=== PATIENT | male | born 1975 | race African-American/Black ===

== ENCOUNTER 2017-06-06 07:14 | Emergency (ER) | payer BC ==
--- NOTE | 2017-06-06 07:58 | EKG ---
Test Date: 2017-06-06 Test Time: 07:34:59 [employer] Supervisor: [place] MEASUREMENT RESULTS: Intervals: Rate: 55 [place]: 144 QRSD: 104 QT: 408 QTc: 390 [place]: P: 58 [place]: 144 QRS: 32 T: -52 INTERPRETIVE STATEMENTS: Sinus bradycardia ST & T wave abnormality, consider inferior ischemia Abnormal ECG Compared to ECG 08/08/2007 19:47:14 ST (T wave) deviation now present Possible ischemia now present Electronically Signed On 06-06-17 07:58:03 CDT by Odilon Fernandez
--- NOTE | 2017-06-06 08:12 | RAD REPORT ---
EXAM DESCRIPTION: CT - Head Brain Wo Cont - 06/06/2017 7:54 am CLINICAL HISTORY: Dizziness, syncope. COMPARISON: None. TECHNIQUE: All CT scans are performed using dose optimization technique as appropriate and may inclu de automated exposure control or mA/KV adjustment according to patient size. FINDINGS: No intracranial hemorrhage, hydrocephalus or extra-axial fluid collection.No areas of brai n edema or evidence of midline shift. The paranasal sinuses and mastoids are clear. The calvarium is intact. IMPRESSION: No acute intracranial abnormality.
[2017-06-06 08:28] LABS: Protime INR 1.1
[2017-06-06 08:36] LABS: Absolute Lymphocytes (CBC) 1.3 K/uL (0.7-4.9); Absolute Monocytes 0.4 K/uL (0.1-1.3); Absolute Neutrophil 4.8 K/uL (1.8-8.0); Basophils % 1.5 % (0-1.3); Eosinophils % 3.3 % (0-4.4); Hematocrit 41.6 % (39.6-49.0); Lymphocytes % 18.4 % (15.3-44.8); MCH 29.9 pg (27.0-35.0); Monocytes % 6.4 % (3.3-12.3); Potassium 3.4 mEq/L (3.6-5.0); RBC Red Blood Cell Count 4.52 M/uL (4.33-5.43)
[2017-06-06 08:42] LABS: Albumin 4.3 g/dL (3.2-5.5); Bilirubin Direct 0.1 mg/dL (0-0.2); Bilirubin Total 0.7 mg/dL (0.3-1.2); Magnesium 1.8 mg/dL (1.8-2.5); Protein, Total 7.4 g/dL (6.0-8.3)
--- NOTE | 2017-06-06 09:03 | RAD REPORT ---
EXAM DESCRIPTION: RAD - Chest Single View - 06/06/2017 8:18 am CLINICAL HISTORY: Chest pain. COMPARISON: None. FINDINGS: Portable technique limits examination quality. The lungs are grossly clear. The heart is normal in size. No displaced fractures. IMPRESSION: No acute intrathoracic process suspected.
[2017-06-06 09:37] LABS: A1c Component 0.5 mg/dL; Hemoglobin A1c 5.3 % (4-6.0)
--- NOTE | 2017-06-06 11:24 | ER ---
Nurse's Notes [facility] Name: Jhon Ash Age: 42 yrs Sex: Male : 1975 Arrival Date: 06/06/2017 Time: 07:16 Bed 4 Private MD: Diagnosis: Dizziness and giddiness;Hypoglycemia, unspecified Presentation: 06/06 07:22 Presenting complaint: Patient states: Pt reports he was in a meeting approx 2 hours ago ss when he became dizzy and sweaty lasting about 5-10 minutes. Denies chest plain/ shortness of breath. PT has no complaints at this time other than a mild headache. Transition of care: patient was not received from another setting of care. Onset of symptoms was June 06, 2017. Care prior to arrival: None. 07:22 Method Of Arrival: Ambulatory ss 07:22 Acuity: MELVI 3 ss Historical: - Allergies: 07:25 No Known Allergies; ss - Home Meds: 07:25 Abilify 10 mg oral tab 1 tab once daily [Active]; ss - PMHx: 07:25 Bipolar disorder; Depression; ss - PSHx: 07:25 None; ss - Immunization history:: Adult Immunizations up to date. - Social history:: Smoking status: Patient/guardian denies using tobacco. Screenin:35 Abuse screen: Denies threats or abuse. Denies injuries from another. Nutritional hb screening: No deficits noted. Tuberculosis screening: No symptoms or risk factors identified. Fall Risk Total Padilla Fall Scale indicates Low Risk Score (25-44 pts). Fall prevention measures have been instituted. Side Rails Up X 2 Frequent Obs/Assesments occuring As available Patient and Family Educated on Fall Prevention Program and strategies. Assessment: 07:34 Reassessment: BGL 58, pt denies dizziness/pain. Juice x 2 provided and breakfast try hb ordered. CLINICAL NURSING PROFESSOR Bob notified. 07:35 General: Appears in no apparent distress. Behavior is calm, cooperative. Pain: Denies hb pain. Neuro: Level of Consciousness is awake, alert, obeys commands, Oriented to person, place, time, situation. Cardiovascular: Capillary refill < 3 seconds Patient's skin is warm and dry. Respiratory: Airway is patent Trachea midline Respiratory effort is even, unlabored, Respiratory pattern is regular, symmetrical, Breath sounds are clear bilaterally. GI: No signs and/or symptoms were reported involving the gastrointestinal system. : No signs and/or symptoms were reported regarding the genitourinary system. EENT: No signs and/or symptoms were reported regarding the EENT system. Derm: No signs and/or symptoms reported regarding the dermatologic system. Skin is pink, warm \T\ dry. Musculoskeletal: No signs and/or symptoms reported regarding the musculoskeletal system. 08:30 Reassessment: Patient appears in no apparent distress at this time. Patient and/or hb family updated on plan of care and expected duration. Pain level reassessed. Patient is alert, oriented x 3, equal unlabored respirations, skin warm/dry/pink. Patient denies pain at this time. Patient states feeling better. Patient states symptoms have improved. 09:30 Reassessment: Patient appears in no apparent distress at this time. No changes from hb previously documented assessment. Patient and/or family updated on plan of care and expected duration. Pain level reassessed. Patient is alert, oriented x 3, equal unlabored respirations, skin warm/dry/pink. 10:20 Reassessment: Patient appears in no apparent distress at this time. No changes from hb previously documented assessment. Patient and/or family updated on plan of care and expected duration. Pain level reassessed. Patient is alert, oriented x 3, equal unlabored respirations, skin warm/dry/pink. 11:14 Reassessment: Patient appears in no apparent distress at this time. No changes from hb previously documented assessment. Patient and/or family updated on plan of care and expected duration. Pain level reassessed. Patient is alert, oriented x 3, equal unlabored respirations, skin warm/dry/pink. Vital Signs: 07:25 BP 121 / 72; Pulse 65; Resp 16; Temp 98.4(O); Pulse Ox 100% on R/A; Height 6 ft. 0 in. ss (182.88 cm); Pain 0/10; 08:30 BP 120 / 70; Pulse 64; Resp 15; Pulse Ox 100% on R/A; Pain 0/10; hb 09:15 BP 111 / 72; Pulse 65; Resp 16; Pulse Ox 100% on R/A; Pain 0/10; hb 10:20 BP 122 / 89; Pulse 67; Resp 16; Pulse Ox 100% on R/A; hb 11:00 BP 120 / 82; Pulse 66; Resp 15; Pulse Ox 100% on R/A; hb ED Course: 07:16 Patient arrived in ED. as 07:24 Triage completed. ss 07:25 Arm band placed on right wrist. ss 07:28 Bob Torres NP is PHCP. pm1 07:28 Ryan Lewis MD is Attending Physician. pm1 07:34 Dhara Moreno, RN is Primary Nurse. hb 07:35 Patient has correct armband on for positive identification. Placed in gown. Bed in low hb position. Call light in reach. Side rails up X 1. 07:45 EKG done, by metallographic technician. reviewed by Ryan Lewis MD. tc 07:46 Inserted saline lock: 18 gauge in right antecubital area, using aseptic technique. hb Blood collected. 07:54 CT Head Brain wo Cont In Process Unspecified. EDMS 08:17 X-ray completed. Portable x-ray completed in exam room. Patient tolerated procedure ml well. 11:47 No provider procedures requiring assistance completed. IV discontinued, intact, hb bleeding controlled, No redness/swelling at site. Pressure dressing applied. Administered Medications: No medications were administered Point of Care Testing: Blood Glucose: 11:13 Blood Glucose: 78 mg/dL; hb Ranges: Outcome: 11:23 Discharge ordered by . pm1 11:47 Discharged to home ambulatory. hb 11:47 Condition: stable 11:47 Discharge instructions given to patient, Instructed on discharge instructions, follow up and referral plans. Demonstrated understanding of instructions, follow-up care. 11:48 Patient left the ED. hb 11:53 Patient left the ED. ph Signatures: Dispatcher [employer] EDMT Jennifer Cooper Melissa ml Smirch, Shelby, RN RN Wanda Alex, osteopathic physician EKG [facility] Pina Carpenter RN RN Bob Torres NP CLINICAL NURSING PROFESSOR pm1 Dhara Moreno, DON RN hb
--- NOTE | 2017-06-06 11:24 | EDPHYS ---
Physician Documentation [facility] Name: Jhon Ash Age: 42 yrs Sex: Male : 1975 Arrival Date: 06/06/2017 Time: 07:16 Bed 4 Private MD: ED Physician Ryan Lewis HPI: 06/06 08:00 This 42 yrs old Black Male presents to ER via Ambulatory with complaints of Dizziness. pm1 08:00 The patient presents with lightheadedness. Onset: The symptoms/episode began/occurred pm1 just prior to arrival. Context: occurred at work, occurred while the patient was standing, just prior to the episode the patient experienced no apparent symptoms. Modifying factors: The symptoms are alleviated by sitting down, the symptoms are aggravated by nothing. Associated signs and symptoms: Pertinent negatives: abdominal pain, chest pain, focal weakness, nausea, numbness, palpitations, shortness of breath, tingling, vomiting. Severity of symptoms: in the emergency department the symptoms have improved Pain is currently a 0 / 10. Patient's baseline: Neuro: alert and fully oriented, Motor: no deficits, Ambulation: walks without assistance, Speech: normal, The patient has a previous history of bipolar disorder - takes abilify. The patient has not experienced similar symptoms in the past. Historical: - Allergies: 07:25 No Known Allergies; ss - Home Meds: 07:25 Abilify 10 mg oral tab 1 tab once daily [Active]; ss - PMHx: 07:25 Bipolar disorder; Depression; ss - PSHx: 07:25 None; ss - Immunization history:: Adult Immunizations up to date. - Social history:: Smoking status: Patient/guardian denies using tobacco. ROS: 08:00 Constitutional: Negative for fever, chills, and weight loss, Eyes: Negative for injury, pm1 pain, redness, and discharge, ENT: Negative for injury, pain, and discharge, Neck: Negative for injury, pain, and swelling, Cardiovascular: Negative for chest pain, palpitations, and edema, Respiratory: Negative for shortness of breath, cough, wheezing, and pleuritic chest pain, Abdomen/GI: Negative for abdominal pain, nausea, vomiting, diarrhea, and constipation, Back: Negative for injury and pain, : Negative for injury, bleeding, discharge, and swelling, MS/Extremity: Negative for injury and deformity, Skin: Negative for injury, rash, and discoloration. 08:00 Neuro: Positive for dizziness, Negative for headache, numbness, seizure activity, syncope, tingling. Exam: 08:00 Constitutional: This is a well developed, well nourished patient who is awake, alert, pm1 and in no acute distress. Head/Face: Normocephalic, atraumatic. Eyes: Pupils equal round and reactive to light, extra-ocular motions intact. Lids and lashes normal. Conjunctiva and sclera are non-icteric and not injected. Cornea within normal limits. Periorbital areas with no swelling, redness, or edema. ENT: Nares patent. No nasal discharge, no septal abnormalities noted. Tympanic membranes are normal and external auditory canals are clear. Oropharynx with no redness, swelling, or masses, exudates, or evidence of obstruction, uvula midline. Mucous membranes moist. Neck: Trachea midline, no thyromegaly or masses palpated, and no cervical lymphadenopathy. Supple, full range of motion without nuchal rigidity, or vertebral point tenderness. No Meningismus. Chest/axilla: Normal chest wall appearance and motion. Nontender with no deformity. No lesions are appreciated. Cardiovascular: Regular rate and rhythm with a normal S1 and S2. No gallops, murmurs, or rubs. Normal PMI, no JVD. No pulse deficits. Respiratory: Lungs have equal breath sounds bilaterally, clear to auscultation and percussion. No rales, rhonchi or wheezes noted. No increased work of breathing, no retractions or nasal flaring. Abdomen/GI: Soft, non-tender, with normal bowel sounds. No distension or tympany. No guarding or rebound. No evidence of tenderness throughout. Back: No spinal tenderness. No costovertebral tenderness. Full range of motion. Skin: Warm, dry with normal turgor. Normal color with no rashes, no lesions, and no evidence of cellulitis. MS/ Extremity: Pulses equal, no cyanosis. Neurovascular intact. Full, normal range of motion. 08:00 Neuro: Orientation: is normal, Mentation: is normal, Cranial nerves: CN II- XII are normal as tested, Cerebellar function: normal finger to nose testing, Motor: moves all fours, strength is normal, strength is 5/5 in all extremities, Sensation: is normal, no obvious gross deficits, Gait: is steady, at a normal pace, without difficulty. Vital Signs: 07:25 BP 121 / 72; Pulse 65; Resp 16; Temp 98.4(O); Pulse Ox 100% on R/A; Height 6 ft. 0 in. ss (182.88 cm); Pain 0/10; 08:30 BP 120 / 70; Pulse 64; Resp 15; Pulse Ox 100% on R/A; Pain 0/10; hb 09:15 BP 111 / 72; Pulse 65; Resp 16; Pulse Ox 100% on R/A; Pain 0/10; hb 10:20 BP 122 / 89; Pulse 67; Resp 16; Pulse Ox 100% on R/A; hb 11:00 BP 120 / 82; Pulse 66; Resp 15; Pulse Ox 100% on R/A; hb MDM: 07:29 Patient medically screened. pm1 11:08 Data reviewed: vital signs. Data interpreted: Pulse oximetry: on room air is 100 %. pm1 Interpretation: normal. 11:22 Counseling: I had a detailed discussion with the patient and/or guardian regarding: the pm1 historical points, exam findings, and any diagnostic results supporting the discharge/admit diagnosis, lab results, radiology results, the need for outpatient follow up, to return to the emergency department if symptoms worsen or persist or if there are any questions or concerns that arise at home. 06/06 07:34 Order name: Glucose, Ancillary Testing; Complete Time: 07:37 EDMS 06/06 07:42 Order name: Basic Metabolic Panel; Complete Time: 10: pm06/06 07:42 Order name: BNP; Complete Time: 10: pm06/06 07:42 Order name: CBC with Diff; Complete Time: 10:13 pm06/06 07:42 Order name: LFT's; Complete Time: 10:13 pm06/06 07:42 Order name: Magnesium; Complete Time: 10:13 pm06/06 07:42 Order name: PT-INR; Complete Time: 08:31 pm06/06 07:42 Order name: Ptt, Activated; Complete Time: 08:31 pm1 06/06 07:42 Order name: Troponin (emerg Dept Use Only); Complete Time: 10:13 pm06/06 07:42 Order name: XRAY Chest (1 view) pm1 06/06 07:42 Order name: CT Head Brain wo Cont; Complete Time: 08:31 pm1 06/06 07:43 Order name: Hemoglobin A1c; Complete Time: 10:13 pm1 06/06 09:03 Order name: RAD; Complete Time: 10:13 EDMS 06/06 11:13 Order name: Glucose, Ancillary Testing; Complete Time: 11:19 EDMS 06/06 07:33 Order name: Diet Regular; Complete Time: 07:33 bd 06/06 07:42 Order name: EKG; Complete Time: 07:43 pm1 06/06 07:42 Order name: Cardiac monitoring; Complete Time: 08:03 pm1 06/06 07:42 Order name: EKG - Nurse/Tech; Complete Time: 08:03 pm1 06/06 07:42 Order name: IV Saline Lock; Complete Time: 08:03 pm1 06/06 07:42 Order name: Labs collected and sent; Complete Time: 08:03 pm1 06/06 07:42 Order name: O2 Per Protocol; Complete Time: 08:03 pm1 06/06 07:42 Order name: O2 Sat Monitoring; Complete Time: 08:04 pm1 Administered Medications: No medications were administered Point of Care Testing: Blood Glucose: 11:13 Blood Glucose: 78 mg/dL; hb Ranges: Critical Glucose Levels:Adult <50 mg/dl or >400 mg/dl <40 mg/dl or >180 mg/dl Disposition: 06/06/17 11:23 Discharged to Home. Impression: Dizziness and giddiness, Hypoglycemia, unspecified. - Condition is Stable. - Discharge Instructions: Dizziness, Hypoglycemia. - Work release form, Medication Reconciliation Form, Thank You Letter form. - Follow up: Emergency Department; When: As needed; Reason: Worsening of condition. Follow up: Private Physician; When: 2 - 3 days; Reason: Recheck today's complaints, Continuance of care, Re-evaluation by your physician. - Problem is new. - Symptoms have improved. Addendum: 06/08/2017 07:16 Co-signature as Attending Physician, Ryan Lewis MD I agree with the assessment and w a plan of care. Signatures: Dispatcher [employer] Amy Smith RN RN Pina Brannon, RN RN ph Bob Torres, SEMICONDUCTOR ENGINEER SEMICONDUCTOR ENGINEER pm1 Dhara Moreno, RN RN hb Ryan Lewis MD MD wa
== END 2017-06-06 11:53 | disposition home or self-care (01) ==
LOC: ER 07:14
DX: E16.2 Hypoglycemia, unspecified (principal); F31.9 Bipolar disorder, unspecified
CPT/HCPCS: 36415; 70450; 71045; 80048; 80076; 82962; 83036; 83735; 83880; 84484; 85025; 85610; 85730; 93005; 99284

== ENCOUNTER 2018-07-30 09:45 | Emergency (ER) | payer BC ==
--- NOTE | 2018-07-30 10:30 | RAD REPORT ---
EXAM DESCRIPTION: CT - C Spine Wo Con - 07/30/2018 10:14 am CLINICAL HISTORY: PAIN Trauma, pain, neck injury COMPARISON: No comparisons FINDINGS: The cervical vertebral body heights and disc spaces are maintained. No evidence of acute cervical spine fracture or subluxation. Prevertebral soft tissues are normal in thickness. IMPRESSION: Negative for acute cervical spine abnormality. All CT scans are performed using dose optimization technique as appropriate and may include automated exposure control or mA/KV adjustment according to patient size.
--- NOTE | 2018-07-30 10:56 | ER ---
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 radiologist read xray as possible C1 fracture today. Transition of care: patient was not received from another setting of care. Onset of symptoms was July 29, 2018. Risk Assessment: Do you want to hurt yourself or someone else? Patient reports no desire to harm self or others. Initial Sepsis Screen: Does the patient meet any 2 criteria? No. Patient's initial sepsis screen is negative. Does the patient have a suspected source of infection? No. Patient's initial sepsis screen is negative. Care prior to arrival: None. 09:54 Method Of Arrival: Ambulatory iw 09:54 Acuity: MELVI 3 iw Historical: - Allergies: 10:01 No Known Allergies; iw - Home Meds: 10:01 None [Active]; iw - PMHx: 10:01 None; iw - PSHx: 10:01 None; iw - Immunization history:: Adult Immunizations up to date. - Social history:: Smoking status: Patient/guardian denies using tobacco. - Ebola Screening: : Patient negative for fever greater than or equal to 101.5 degrees Fahrenheit, and additional compatible Ebola Virus Disease symptoms Patient denies exposure to infectious person Patient denies travel to an Ebola-affected area in the 21 days before illness onset No symptoms or risks identified at this time. - Family history:: not pertinent. Screenin:03 Abuse screen: Denies threats or abuse. Denies injuries from another. Nutritional ph screening: No deficits noted. Tuberculosis screening: No symptoms or risk factors identified. Fall Risk None identified. Assessment: 10:01 General: Appears in no apparent distress. comfortable, slender, well groomed, Behavior ph is calm, cooperative, appropriate for age. Pain: Complains of pain in posterior cervical area Quality of pain is described as "stiffness". Neuro: Level of Consciousness is awake, alert, obeys commands, Oriented to person, place, time, situation, Denies weakness dizziness, paresthesias numbness. Cardiovascular: Capillary refill < 3 seconds in bilateral fingers Patient's skin is warm and dry. Respiratory: Airway is patent Respiratory effort is even, unlabored. GI: Patient currently denies nausea, vomiting. Derm: Skin is intact, is healthy with good turgor, Skin is pink, warm \\T\\ dry. Musculoskeletal: Circulation, motion, and sensation intact. Range of motion: intact in all extremities. 10:40 Reassessment: Patient appears in no apparent distress at this time. Patient and/or ph family updated on plan of care and expected duration. Pain level reassessed. Patient is alert, oriented x 3, equal unlabored respirations, skin warm/dry/pink. C-collar placed per ERP order. 11:05 Reassessment: Patient appears in no apparent distress at this time. Patient and/or ph family updated on plan of care and expected duration. Pain level reassessed. Patient is alert, oriented x 3, equal unlabored respirations, skin warm/dry/pink. CT negative for fracture,c-collar removed and pt d/c home. Vital Signs: 09:57 BP 136 / 87; Pulse 58; Resp 18; Temp 98.1(TE); Pulse Ox 96% on R/A; mh5 10:48 BP 121 / 87; Pulse 62; Resp 16; Temp 98.5(O); Pulse Ox 98% ; mh5 ED Course: 09:51 Patient arrived in ED. iw 09:52 Antoine Rob MD is Attending Physician. rodriguez 10:00 Pina Carpenter RN is Primary Nurse. ph 10:00 Triage completed. iw 10:01 Arm band placed on. iw 10:03 Patient has correct armband on for positive identification. Bed in low position. Call ph light in reach. Side rails up X 1. Pulse ox on. NIBP on. 10:15 CT C Spine In Process Unspecified. EDMS 11:06 No provider procedures requiring assistance completed. Patient did not have IV access ph during this emergency room visit. Administered Medications: No medications were administered Outcome: 10:55 Discharge ordered by . rodriguez 11:06 Discharged to home ambulatory. ph 11:06 Condition: good 11:06 Discharge instructions given to patient, Instructed on discharge instructions, follow up and referral plans. Demonstrated understanding of instructions, follow-up care. 11:07 Patient left the ED. ph Signatures: Dispatcher [employer] Antoine Diop MD MD cha Williams, Irene, RN RN Pina Carpenter RN RN Haleigh Cooper [facility]
--- NOTE | 2018-07-30 10:56 | EDPHYS ---
Physician Documentation [facility] Name: Jhon Ash Age: 43 yrs Sex: Male : 1975 Arrival Date: 07/30/2018 Time: 09:51 Bed 7 Private MD: ED Physician Antoine Rob HPI: 07/30 10:10 This 43 yrs old Black Male presents to ER via Ambulatory with complaints of Neck rodriguez Problem. 10:10 The patient or guardian complains of decreased range of motion, pain, that is acute. rodriguez The symptoms are located at the C1, C2 and C3. Onset: The symptoms/episode began/occurred 1 day(s) ago. Context: The problem was sustained at work. Associated signs and symptoms: The patient has no apparent associated signs or symptoms. Modifying factors: The symptoms are alleviated by remaining still, the symptoms are aggravated by movement, pressure. Severity of symptoms: At their worst the symptoms were mild, moderate, in the emergency department the symptoms are unchanged. The patient has not experienced similar symptoms in the past. Historical: - Allergies: 10:01 No Known Allergies; iw - Home Meds: 10: None [Active]; iw - PMHx: 10: None; iw - PSHx: 10:01 None; iw - Immunization history:: Adult Immunizations up to date. - Social history:: Smoking status: Patient/guardian denies using tobacco. - Ebola Screening: : Patient negative for fever greater than or equal to 101.5 degrees Fahrenheit, and additional compatible Ebola Virus Disease symptoms Patient denies exposure to infectious person Patient denies travel to an Ebola-affected area in the 21 days before illness onset No symptoms or risks identified at this time. - Family history:: not pertinent. ROS: 10:10 Constitutional: Negative for fever, chills, and weight loss, Eyes: Negative for injury, rodriguez pain, redness, and discharge, ENT: Negative for injury, pain, and discharge, Cardiovascular: Negative for chest pain, palpitations, and edema, Respiratory: Negative for shortness of breath, cough, wheezing, and pleuritic chest pain, Abdomen/GI: Negative for abdominal pain, nausea, vomiting, diarrhea, and constipation, Back: Negative for injury and pain, : Negative for injury, bleeding, discharge, and swelling, MS/Extremity: Negative for injury and deformity, Skin: Negative for injury, rash, and discoloration, Neuro: Negative for headache, weakness, numbness, tingling, and seizure, Psych: Negative for depression, anxiety, suicide ideation, homicidal ideation, and hallucinations, Allergy/Immunology: Negative for hives, rash, and allergies, Endocrine: Negative for neck swelling, polydipsia, polyuria, polyphagia, and marked weight changes, Hematologic/Lymphatic: Negative for swollen nodes, abnormal bleeding, and unusual bruising. 10:10 Neck: Positive for pain with movement, pain at rest, stiffness, tenderness. Exam: 10:10 Constitutional: This is a well developed, well nourished patient who is awake, alert, rodriguez and in no acute distress. Head/Face: Normocephalic, atraumatic. Eyes: Pupils equal round and reactive to light, extra-ocular motions intact. Lids and lashes normal. Conjunctiva and sclera are non-icteric and not injected. Cornea within normal limits. Periorbital areas with no swelling, redness, or edema. ENT: Nares patent. No nasal discharge, no septal abnormalities noted. Tympanic membranes are normal and external auditory canals are clear. Oropharynx with no redness, swelling, or masses, exudates, or evidence of obstruction, uvula midline. Mucous membranes moist. Chest/axilla: Normal chest wall appearance and motion. Nontender with no deformity. No lesions are appreciated. Cardiovascular: Regular rate and rhythm with a normal S1 and S2. No gallops, murmurs, or rubs. Normal PMI, no JVD. No pulse deficits. Respiratory: Lungs have equal breath sounds bilaterally, clear to auscultation and percussion. No rales, rhonchi or wheezes noted. No increased work of breathing, no retractions or nasal flaring. Abdomen/GI: Soft, non-tender, with normal bowel sounds. No distension or tympany. No guarding or rebound. No evidence of tenderness throughout. Back: No spinal tenderness. No costovertebral tenderness. Full range of motion. Skin: Warm, dry with normal turgor. Normal color with no rashes, no lesions, and no evidence of cellulitis. MS/ Extremity: Pulses equal, no cyanosis. Neurovascular intact. Full, normal range of motion. Neuro: Awake and alert, GCS 15, oriented to person, place, time, and situation. Cranial nerves II-XII grossly intact. Motor strength 5/5 in all extremities. Sensory grossly intact. Cerebellar exam normal. Normal gait. Psych: Awake, alert, with orientation to person, place and time. Behavior, mood, and affect are within normal limits. 10:10 Neck: C-spine: C-collar placed in ED, Thyroid: appears normal, Trachea: is midline with no obvious abnormalities, ROM/movement: pain, limited range of motion, that is mild, when rotating to the right, when rotating to the left, with flexion, with extension, Meningeal signs: are not present, Kernig's sign is negative, Brudzinski's sign is negative, nuchal rigidity, is not appreciated. Vital Signs: 09:57 BP 136 / 87; Pulse 58; Resp 18; Temp 98.1(TE); Pulse Ox 96% on R/A; mh5 10:48 BP 121 / 87; Pulse 62; Resp 16; Temp 98.5(O); Pulse Ox 98% ; mh5 MDM: 09:52 Patient medically screened. [facility] 10:15 Data reviewed: vital signs, nurses notes, radiologic studies, CT scan. [facility] 07/30 09:53 Order name: CT C Spine; Complete Time: 10:54 [facility] 07/30 10:15 Order name: Cervical Collar; Complete Time: 10:29 [facility] Administered Medications: No medications were administered Disposition: 07/30/18 10:55 Discharged to Home. Impression: Fall due to bumping against object, Strain of muscle, fascia and tendon at neck level. - Condition is Stable. - Discharge Instructions: Muscle Strain, Cervical Sprain, [id number]. - Medication Reconciliation Form, Thank You Letter, Antibiotic Education, Prescription Opioid Use form. - Follow up: Private Physician; When: Upon discharge from the Emergency Department; Reason: Recheck today's complaints, Continuance of care, Re-evaluation by your physician. - Problem is new. - Symptoms have improved. Signatures: Dispatcher [employer] EDAntoine Gonzalez MD MD cha Williams, Irene, RN RN Pina Carpenter RN RN ph Corrections: (The following items were deleted from the chart) 11:07 10:55 07/30/2018 10:55 Discharged to Home. Impression: Fall due to bumping against ph object; Strain of muscle, fascia and tendon at neck level. Condition is Stable. Forms are Medication Reconciliation Form, Thank You Letter, Antibiotic Education, Prescription Opioid Use. Follow up: Private Physician; When: Upon discharge from the Emergency Department; Reason: Recheck today's complaints, Continuance of care, Re-evaluation by your physician. Problem is new. Symptoms have improved. rodriguez
== END 2018-07-30 11:07 | disposition home or self-care (01) ==
LOC: ER 09:45
DX: S16.1XXA Strain of muscle, fascia and tendon at neck level, initial encounter (principal); W18.00XA Striking against unspecified object with subsequent fall, initial encounter; Y93.9 Activity, unspecified; Y92.89 Other specified places as the place of occurrence of the external cause; Y99.8 Other external cause status
CPT/HCPCS: 72125; 99283

== ENCOUNTER 2019-10-30 11:24 | Observation (INO) | payer BC ==
[2019-10-30 12:32] LABS: Absolute Lymphocytes (CBC) 1.1 K/uL (0.7-4.9); Basophils % 0.7 % (0-1.3); Hematocrit 41.2 % (39.6-49.0); Lymphocytes % 13.2 % (15.3-44.8); MPV 12.4 fL (7.6-11.3); RBC Red Blood Cell Count 4.46 M/uL (4.33-5.43)
[2019-10-30 13:23] LABS: ALT/SGPT 27 U/L (12-78); AST/SGOT 17 U/L (15-37); Albumin 3.5 g/dL (3.4-5.0); Alkaline Phosphatase 67 U/L (45-117); BUN Blood Urea Nitrogen 10 mg/dL (7-18); Bicarbonate 31 mmol/L (21-32); Bilirubin Direct 0.2 mg/dL (0-0.2); Bilirubin Total 0.6 mg/dL (0.2-1.0); Glucose Level 86 mg/dL (74-106); Lipase 37 U/L (73-393); Potassium 3.7 mmol/L (3.5-5.1); Protein, Total 7.4 g/dL (6.4-8.2); Sodium Level 144 mmol/L (136-145)
--- NOTE | 2019-10-30 14:12 | RAD REPORT ---
EXAM DESCRIPTION: CT - Abdomen Pelvis W Contrast - 10/30/2019 1:37 pm CLINICAL HISTORY: ABD PAIN COMPARISON: No comparisons TECHNIQUE: Biphasic, helical CT imaging of the abdomen and pelvis was performed following 100 ml non -ionic IV contrast. No oral contrast administered. All CT scans are performed using dose optimization technique as appropriate and may include automated exposure control or mA/KV adjustment according to patient size. FINDINGS: No suspicious findings in the lung bases. The liver, spleen, and pancreas show no suspicious findings. No biliary tree dilatation. Gallbladder is grossly abnormal. Gallbladder is well filled but not dilated. There is enhancement of the mucosal surface. Wall thickening and edema are present. There is stranding and probable fluid in the adjacent fatty tissues. Symmetric renal function is seen with no hydronephrosis or suspicious renal mass. No pyelonephritis o r acute parenchymal process. No bladder abnormalities. No adrenal abnormalities. No dilated bowel loops or bowel wall thickening. Appendix is normal. No free air or pneumatosis. No f ree fluid seen. No other area of inflammatory stranding. No hernia, mass or bulky lymphadenopathy. No suspicious bony findings. IMPRESSION: Abnormal gallbladder with enhancing mucosal surface, circumferential wall thickening and edema as well as stranding in the gallbladder fossa. Findings are consistent with an acute cholecystitis. No gallstones are seen but can be occult on CT i maging. No biliary tree or pancreatic abnormality seen.
--- NOTE | 2019-10-30 15:02 | ER ---
Nurse's Notes [facility] Name: Jhon Ash Age: 44 yrs Sex: Male : 1975 Arrival Date: 10/30/2019 Time: 11:27 Bed 20 Private MD: Diagnosis: Calculus of gallbladder with acute cholecystitis without obstruction Presentation: 10/29 11:47 Chief complaint: nausea, diarrhea, and abdominal pain 8/10 since last night. hb Coronavirus screen: diarrhea, nausea, Client presents with at least one sign or symptom that may indicate coronavirus-19. Standard/surgical mask placed on the client. Provider contacted for isolation considerations. Ebola Screen: No symptoms or risks identified at this time. Initial Sepsis Screen: Does the patient meet any 2 criteria? No. Patient's initial sepsis screen is negative. Does the patient have a suspected source of infection? No. Patient's initial sepsis screen is negative. Risk Assessment: Do you want to hurt yourself or someone else? Patient reports no desire to harm self or others. Onset of symptoms was October 29, 2019. 11:47 Method Of Arrival: Ambulatory 11:47 Acuity: MELVI 3 hb Triage Assessment: 11:50 General: Appears in no apparent distress. uncomfortable, Behavior is cooperative, bp appropriate for age, anxious. Pain: Complains of pain in abdomen. EENT: No deficits noted. Neuro: No deficits noted. Cardiovascular: No deficits noted. Respiratory: No deficits noted. GI: Reports lower abdominal pain. : No signs and/or symptoms were reported regarding the genitourinary system. Derm: No deficits noted. Musculoskeletal: No deficits noted. Historical: - Allergies: 11:49 No Known Allergies; hb - Home Meds: 11:49 Abilify 10 mg Oral tab 1 tab once daily [Active]; hb - PMHx: 11:49 Bipolar disorder; Depression; hb - PSHx: 11:49 None; hb - Immunization history:: Adult Immunizations up to date. - Social history:: Smoking status: Patient denies any tobacco usage or history of. Screenin:57 Abuse screen: Denies threats or abuse. Nutritional screening: No deficits noted. tw2 Tuberculosis screening: No symptoms or risk factors identified. Fall Risk None identified. Assessment: 11:50 General: SEE TRIAGE NOTE. bp 13:18 Reassessment: CT PENDING, VS STABLE ON MONITOR. NO ACUTE S/S AT THIS TIME. bp 14:51 Reassessment: PT RETURNED FROM U/S. bp 15:19 Reassessment: ADMIT INITIATED FOR ACUTE CHOLECYSTITIS. VS STABLE ON MONITOR. bp 16:00 GI: Bowel sounds present X 4 quads. Abd is soft X 4 quads Abdomen is tender to bp palpation in right upper quadrant and right lower quadrant. 17:09 Reassessment: ADMIT IN PROCESS. AWAITING ADMIT ORDERS. bp 18:32 Reassessment: ADMIT COMPLETE, REPORT TO JULIA OCHOA FOR RM 212. bp Vital Signs: 11:47 BP 139 / 63; Pulse 56; Resp 16; Temp 97.9; Pulse Ox 100% on R/A; Weight 90.72 kg; hb Height 6 ft. (182.88 cm); Pain 8/10; 13:18 BP 114 / 82; Pulse 55; Resp 17; Pulse Ox 100% ; bp 15:18 BP 116 / 75; Pulse 66; Resp 16; Pulse Ox 100% ; bp 16:00 BP 142 / 102; Pulse 72; Resp 16; Pulse Ox 100% ; bp 17:00 BP 124 / 74; Pulse 63; Resp 17; Pulse Ox 99% ; bp 18:00 BP 138 / 89; Pulse 61; Resp 17; Pulse Ox 100% ; bp 11:47 Body Mass Index 27.12 (90.72 kg, 182.88 cm) hb ED Course: 11:27 Patient arrived in ED. ds1 11:48 Triage completed. hb 11:49 Arm band placed on. hb 11:52 Bed in low position. Call light in reach. Pulse ox on. NIBP on. tw2 11:58 Dhara Moreno, RN is Primary Nurse. hb 11:59 Primary Nurse role handed off by Dhara Moreno, RN bp 11:59 Nick Vang, RN is Primary Nurse. bp 12:12 Derek Pena PA is PHCP. jr8 12:12 Chay Schmidt MD is Attending Physician. jr8 12:31 Inserted saline lock: 20 gauge in right antecubital area, using aseptic technique. bp Blood collected. 13:37 CT Abd/Pelvis - IV Contrast Only In Process Unspecified. EDMS 14:48 US Abdomen Limited In Process Unspecified. EDMS 15:01 Bird Elizalde MD is Hospitalizing Provider. jr8 17:10 No provider procedures requiring assistance completed. Patient admitted, IV remains in bp place. Administered Medications: 15:10 Drug: Zosyn 3.375 grams Route: IVPB; Infused Over: 60 mins; Site: right antecubital; bp 18:00 Follow up: IV Status: Infusion continued upon admission bp 15:10 Drug: NS 0.9% 1000 ml Route: IV; Rate: 100 ml/hr; Site: right antecubital; bp 18:00 Follow up: IV Status: Completed infusion; IV Intake: 100ml bp Intake: 18:00 IV: 100ml; Total: 100ml. bp Outcome: 15:02 Decision to Hospitalize by Provider. jr8 18:31 Admitted to Med/surg accompanied by tech, via wheelchair, room 212, with chart, Report bp called to JULIA OCHOA 18:31 Condition: stable 18:31 Instructed on the need for admit. 18:43 Patient left the ED. bp Signatures: Dispatcher [facility] Tapia, Adrianne ds1 Derek Pena PA PA jr8 Dhara Moreno, RN RN Concepción Aceves RN RN tw2 Nick Vang, RN RN bp Corrections: (The following items were deleted from the chart) 17:14 17:09 Reassessment: PT CHANGED TO ER HOLD, SEE [facility] FOR FURTHER CHARTING bp bp 17:20 17:11 Admitted to ER Hold. Please see [facility] for further documentation. bp bp
--- NOTE | 2019-10-30 15:02 | EDPHYS ---
Physician Documentation [facility] Name: Jhon Ash Age: 44 yrs Sex: Male : 1975 Arrival Date: 10/30/2019 Time: 11:27 Bed 20 Private MD: ED Physician Chay Schmidt HPI: 10/29 13:20 This 44 yrs old Black Male presents to ER via Ambulatory with complaints of Abdominal jr8 Pain. 13:20 The patient presents with abdominal pain in the upper abdomen. Onset: The jr8 symptoms/episode began/occurred acutely, last night. The symptoms radiate to back. Associated signs and symptoms: Pertinent positives: nausea. The symptoms are described as shooting. Modifying factors: The symptoms are alleviated by nothing, the symptoms are aggravated by nothing. Severity of pain: At its worst the pain was moderate in the emergency department the pain is unchanged. The patient has not experienced similar symptoms in the past. The patient has not recently seen a physician. Historical: - Allergies: 11:49 No Known Allergies; hb - Home Meds: 11:49 Abilify 10 mg Oral tab 1 tab once daily [Active]; hb - PMHx: 11:49 Bipolar disorder; Depression; hb - PSHx: 11:49 None; hb - Immunization history:: Adult Immunizations up to date. - Social history:: Smoking status: Patient denies any tobacco usage or history of. ROS: 13:20 Eyes: Negative for injury, pain, redness, and discharge, ENT: Negative for injury, jr8 pain, and discharge, Neck: Negative for injury, pain, and swelling, Cardiovascular: Negative for chest pain, palpitations, and edema, Respiratory: Negative for shortness of breath, cough, wheezing, and pleuritic chest pain, Back: Negative for injury and pain, MS/Extremity: Negative for injury and deformity, Skin: Negative for injury, rash, and discoloration, Neuro: Negative for headache, weakness, numbness, tingling, and seizure. 13:20 Abdomen/GI: Positive for abdominal pain, nausea, Negative for vomiting, diarrhea, constipation, abdominal cramps, abdominal distension, anorexia, dysphagia, hematemesis, black/tarry stool, rectal pain, rectal bleeding, bowel incontinence, flatulence. Exam: 13:20 Eyes: Pupils equal round and reactive to light, extra-ocular motions intact. Lids and jr8 lashes normal. Conjunctiva and sclera are non-icteric and not injected. Cornea within normal limits. Periorbital areas with no swelling, redness, or edema. ENT: Nares patent. No nasal discharge, no septal abnormalities noted. Tympanic membranes are normal and external auditory canals are clear. Oropharynx with no redness, swelling, or masses, exudates, or evidence of obstruction, uvula midline. Mucous membranes moist. Neck: Trachea midline, no thyromegaly or masses palpated, and no cervical lymphadenopathy. Supple, full range of motion without nuchal rigidity, or vertebral point tenderness. No Meningismus. Cardiovascular: Regular rate and rhythm with a normal S1 and S2. No gallops, murmurs, or rubs. Normal PMI, no JVD. No pulse deficits. Respiratory: Lungs have equal breath sounds bilaterally, clear to auscultation and percussion. No rales, rhonchi or wheezes noted. No increased work of breathing, no retractions or nasal flaring. Back: No spinal tenderness. No costovertebral tenderness. Full range of motion. Skin: Warm, dry with normal turgor. Normal color with no rashes, no lesions, and no evidence of cellulitis. MS/ Extremity: Pulses equal, no cyanosis. Neurovascular intact. Full, normal range of motion. Neuro: Awake and alert, GCS 15, oriented to person, place, time, and situation. Cranial nerves II-XII grossly intact. Motor strength 5/5 in all extremities. Sensory grossly intact. Cerebellar exam normal. Normal gait. 13:20 Abdomen/GI: Inspection: abdomen appears normal, Bowel sounds: active, all quadrants, Palpation: soft, in all quadrants, mild abdominal tenderness, in the epigastric area, right upper quadrant and right lower quadrant, mass, is not appreciated, rebound tenderness, is not appreciated, voluntary guarding, is not appreciated, involuntary guarding, is not appreciated, no appreciated organomegaly, Indicators: McBurney's point is not tender, Zhong's sign is negative, Rovsing's sign is negative, Liver: tenderness, is not appreciated. Vital Signs: 11:47 BP 139 / 63; Pulse 56; Resp 16; Temp 97.9; Pulse Ox 100% on R/A; Weight 90.72 kg; hb Height 6 ft. (182.88 cm); Pain 8/10; 13:18 BP 114 / 82; Pulse 55; Resp 17; Pulse Ox 100% ; bp 15:18 BP 116 / 75; Pulse 66; Resp 16; Pulse Ox 100% ; bp 16:00 BP 142 / 102; Pulse 72; Resp 16; Pulse Ox 100% ; bp 17:00 BP 124 / 74; Pulse 63; Resp 17; Pulse Ox 99% ; bp 18:00 BP 138 / 89; Pulse 61; Resp 17; Pulse Ox 100% ; bp 11:47 Body Mass Index 27.12 (90.72 kg, 182.88 cm) hb MDM: 12:12 Patient medically screened. jr8 15:00 Data reviewed: vital signs, nurses notes, lab test result(s), radiologic studies, CT jr8 scan, ultrasound, and as a result, I will admit patient. Data interpreted: Pulse oximetry: on room air is 100 %. Interpretation: normal. Counseling: I had a detailed discussion with the patient and/or guardian regarding: the historical points, exam findings, and any diagnostic results supporting the discharge/admit diagnosis, lab results, radiology results, the need for further work-up and treatment in the hospital. Physician consultation: Bird Elizalde MD was called at 15:01, was contacted at 15:01, regarding admission, to the medical/surgical unit. and will see patient. 10/29 12:12 Order name: Basic Metabolic Panel; Complete Time: 13:26 8 10/29 12:12 Order name: CBC with Diff; Complete Time: 12:46 8 10/29 12:12 Order name: Hepatic Function; Complete Time: 13: jr8 10/29 12:12 Order name: Lipase; Complete Time: 13: jr8 10/29 12:46 Order name: CT Abd/Pelvis - IV Contrast Only; Complete Time: 14:30 8 10/29 14:31 Order name: US Abdomen Limited; Complete Time: 15:30 jr8 10/29 12:12 Order name: IV Saline Lock; Complete Time: 12:30 jr8 10/29 12:12 Order name: Labs collected and sent; Complete Time: 12:30 jr8 10/29 12:37 Order name: Labs - recollect needed: green top only; Complete Time: 12:54 hb Administered Medications: 15:10 Drug: Zosyn 3.375 grams Route: IVPB; Infused Over: 60 mins; Site: right antecubital; bp 18:00 Follow up: IV Status: Infusion continued upon admission bp 15:10 Drug: NS 0.9% 1000 ml Route: IV; Rate: 100 ml/hr; Site: right antecubital; bp 18:00 Follow up: IV Status: Completed infusion; IV Intake: 100ml bp Disposition: 18:45 Co-signature as Attending Physician, Chay Schmidt MD I agree with the assessment and kdr plan of care. Disposition: 10/30/19 15:02 Hospitalization ordered by Bird Elizalde for Observation. Preliminary diagnosis is Calculus of gallbladder with acute cholecystitis without obstruction. - Bed requested for Telemetry/MedSurg (observation). - Status is Observation. bp - Condition is Stable. - Problem is new. - Symptoms are unchanged. Signatures: Dispatcher [employer] EDMS Chay Schmidt MD MD kdr Mor Cooper em1 Derek Pena PA PA jr8 Dhara Moreno, DON RN Nick Vang RN RN bp Corrections: (The following items were deleted from the chart) 17:54 15:02 Hospitalization Ordered by Bird Elizalde MD for Observation. Preliminary em1 diagnosis is Calculus of gallbladder with acute cholecystitis without obstruction. Bed requested for Telemetry/MedSurg (observation). Status is Observation. Condition is Stable. Problem is new. Symptoms are unchanged. jr8 18:43 17:54 10/30/2019 15:02 Hospitalization Ordered by Bird Elizalde MD for Observation. bp Preliminary diagnosis is Calculus of gallbladder with acute cholecystitis without obstruction. Bed requested for Telemetry/MedSurg (observation). Status is Observation. Condition is Stable. Problem is new. Symptoms are unchanged. em1
[2019-10-30] MEDS ORDERED: NA CHLORIDE 0.9% 1,000 ML ONE (15:23)
--- NOTE | 2019-10-30 15:23 | RAD REPORT ---
EXAM DESCRIPTION: US - Abdomen Exam Limited - 10/30/2019 2:53 pm CLINICAL HISTORY: abnormal GB;Abd pain, abnormal CT study COMPARISON: Abdomen Pelvis W Contrast dated 10/30/2019 FINDINGS: Multiple gallstones are present approximately 8-12 mm in size. Gallbladder is well filled but not dilated. Gallbladder wall thickening and edema are present. Minimal amount of pericholecystic fluid is present. No common duct stone or biliary tree dilatation identified. IMPRESSION: Multi stone cholelithiasis with acute cholecystitis findings as detailed on this study a nd the earlier CT study. No biliary tree abnormality.
[2019-10-30] MEDS ORDERED: PIPER/TAZO/NS 3.375gm 3.375 GM/100 ML BAG ONE (15:24)
[2019-10-30] MEDS ORDERED: ACETAMINOPHEN 500 MG TAB PO PRN (19:54)
[2019-10-30] MEDS ORDERED: MORPHINE 4 MG/ML SYR IV PRN (19:54)
[2019-10-30] MEDS ORDERED: ONDANSETRON 4 MG/2 ML VIAL IV PRN (19:54)
[2019-10-30 20:19] VITALS: BMI 27.8
[2019-10-30] MEDS: D5 0.45 NS 1,000 ML IV SCH (20:25)
[2019-10-30] MEDS ORDERED: PROMETHAZINE INJ 25 MG/ML AMP IV PRN (20:29)
[2019-10-30] MEDS ORDERED: PIPER/TAZO/NS 3.375gm 6.750 GM/200 ML BAG ONE (22:44)
[2019-10-31] MEDS: PIPER/TAZO/NS 3.375gm 3.375 GM/100 ML BAG IVPB SCH ×4 (00:46→21:32)
[2019-10-31 05:42] LABS: Absolute Lymphocytes (CBC) 2.1 K/uL (0.7-4.9); Basophils % 0.8 % (0-1.3); Hematocrit 37.6 % (39.6-49.0); Lymphocytes % 22.5 % (15.3-44.8); MPV 12.3 fL (7.6-11.3); RBC Red Blood Cell Count 4.16 M/uL (4.33-5.43)
[2019-10-31 05:52] LABS: Bilirubin Direct 0.2 mg/dL (0-0.2); Bilirubin Total 0.9 mg/dL (0.2-1.0); Potassium 3.4 mmol/L (3.5-5.1); Protein, Total 6.5 g/dL (6.4-8.2)
[2019-10-31] MEDS: D5 0.45 NS 1,000 ML IV SCH ×2 (05:54→14:58)
[2019-10-31 07:42] LABS: Blood Morphology Comment NOT SEEN (NOT SEEN); Platelet Estimate ADEQ
[2019-10-31] MEDS ORDERED: Ringers Lactate 1,000 ML IV ONE ×2 (08:24→11:13)
--- NOTE | 2019-10-31 08:42 | P.HP ---
Date of Service: 10/31/19 PC: This 44-year-old male presents emergency room with severe right upper quadrant abdominal pain for diagnosis and treatment. HPC: Patient had and severe right upper quadrant abdominal pain after heavy meal. Has been having episodes like this off and on for the last 2 weeks. This will was worse and he could no longer stand it. PMH: Bipolar disorder PSHx: Negative SOC: No allergies, takes Abilify SYS REVIEW: No cough, wheeze, shortness of breath. No chest pain or palpitations. Mild hesitancy. No change in bowel habit O/E wake alert comfortable at the moment HEENT: Nonicteric Chest: Air entry equal bilateral ABD: Mild right upper quadrant tender LOCO: Intact DATA: Has documented gallstones on ultrasound and CT IMPRESSION: Cholecystitis with cholelithiasis, biliary colic PLAN: I will take him to the operating room for laparoscopic possible open cholecystectomy with cholangiogram. The risks of this procedure have been discussed. The possibility x-ray, injury to bile ducts blood vessels intestines has been described. The possible need for an open and/or further surgeries and procedures was discussed. He understands and wants us to proceed.
[2019-10-31] MEDS ORDERED: FENTANYL CITR 100 MCG/2 ML ONE (08:51)
[2019-10-31] MEDS ORDERED: dexAMETHasone 10 MG/ML VIAL ONE (08:51)
[2019-10-31] MEDS ORDERED: KETOROLAC 30 MG/ML INJ ONE (08:51)
[2019-10-31] MEDS ORDERED: propofoL 200 MG/20 ML VIAL IV ONE (08:51)
[2019-10-31] MEDS ORDERED: MIDAZOLAM HCL 2 MG/2 ML INJ ONE (08:51)
[2019-10-31] MEDS ORDERED: LIDOCAINE 2% MPF 5 ML VIAL ONE (08:52)
[2019-10-31] MEDS ORDERED: ROCURONIUM 50 MG/5 ML VIAL IV ONE (08:52)
[2019-10-31] MEDS ORDERED: ONDANSETRON 4 MG/2 ML VIAL ONE (08:52)
[2019-10-31] MEDS ORDERED: NS 0.9% VIAL 10 ML ONE (09:46)
[2019-10-31] MEDS ORDERED: Phenylephrine HCl 10 MG/ML 1 ML VIAL ONE (09:46)
--- NOTE | 2019-10-31 10:17 | P.OP ---
Preoperative diagnosis: Acute on chronic cholecystitis with cholelithiasis Postoperative diagnosis: The same Primary procedure: Laparoscopic cholecystectomy Secondary procedure: Cholangiogram Anesthesia: General Estimated blood loss: Less than 20 cc Specimen: 1 gallbladder and contents Findings: Cholecystitis with cholelithiasis Operative Technique: The patient brought the operating room placed supine on the table. After the induction of adequate general endotracheal anesthesia, the patient was prepped with a DuraPrep solution, draped in usual aseptic manner. A subumbilical incision was made. This brought down through the skin and subcutaneous tissue. The Visiport was used to enter the peritoneal cavity and created pneumoperitoneum to approximately 12 mm of mercury. A 5 mm trocar was placed in the upper midline and 2 5s right on the lateral side with the patient's it is elevated rolled to the left we were able to visualize the right upper quadrant. We could see an acutely you inflamed gallbladder with an obvious chronic component. He the gallbladder was markedly distended. A trocar was used to aspirate its contents. Adhesions of omentum were then taken down. A grasper was placed on the fundus of the gallbladder, elevating it upward. This thick peel was then gently teased away from the omentum. We could identify Irene's pouch. Gentle dissection in this area allowed us to expose the cystic duct and artery. The duct having been identified a clip was placed between the gallbladder and the cystic duct. An opening was made into the cystic duct through which we obtained a normal intraoperative cholangiogram. The catheter was removed. Clips were placed on the distal portion of the cystic duct. The cystic duct was now fully transected. The artery was it had been identified and now was clipped and divided in the usual way. The gallbladder was then dissected free from this thick peel from under the liver. It was placed into the Endo pouch. Due to the thickness of the gallbladder was necessary to open her facile defect at the emboli kiss. The patient also has a concomitant umbilical hernia in this area. We were finally able to extract the gallbladder from the peritoneal cavity. At this point the Endo Close was used to approximate the facile defect and the umbilical hernia at the emboli kiss. 5 sutures were placed. At this point the pneumoperitoneum was reestablished. We inspected to ensure adequate hemostasis. The remaining irrigating fluid was removed from the peritoneal cavity. The the anterior abdominal wall was Harish blocked with 0.25% Marcaine. The pneumoperitoneum having being collapsed, and the trocars removed, vahid were applied to the skin. He was in a stable condition when sent to the recovery room. Needle sponge instrument count were correct. Complications: None Transferred to: Recovery Room Condition: Good
--- NOTE | 2019-10-31 11:26 | RAD REPORT ---
EXAM DESCRIPTION: RAD - Cholangiogram Oper-Xray Or - 10/31/2019 11:19 am CLINICAL HISTORY: LAP RA WITH IOC Abdominal plain COMPARISON: Abdomen Exam Limited dated 10/30/2019 FINDINGS: Cystic duct injection was performed by operating surgeon. No evidence of retained common b ile duct stone seen. Total fluoro time: 0.1 minutes Four fluoroscopic images are submitted. IMPRESSION: No evidence of retained common duct stone.
[2019-10-31] MEDS: MORPHINE 4 MG/ML SYR IV PRN ×3 (16:00→21:32)
[2019-11-01 00:56] VITALS: O2SAT 96
[2019-11-01] MEDS: PIPER/TAZO/NS 3.375gm 3.375 GM/100 ML BAG IVPB SCH (05:48)
[2019-11-01] MEDS: MORPHINE 4 MG/ML SYR IV PRN (05:51)
[2019-11-01 06:23] VITALS: TEMP 97.2
[2019-11-01 09:58] VITALS: BP 100/59
== END 2019-11-01 10:15 | disposition home or self-care (01) ==
LOC: ER 11:24 → ERHOLD 17:30 → 2ND 18:31
PROVIDERS: ADMIT Surgery; ATTEND Surgery
PROC: BF13YZZ Fluoroscopy of Gallbladder and Bile Ducts using Other Contrast (ICD-10-PCS; 2019-10-31)
PROC: 0FT44ZZ Resection of Gallbladder, Percutaneous Endoscopic Approach (ICD-10-PCS; principal; 2019-10-31 09:00)
DX: K80.00 Calculus of gallbladder with acute cholecystitis without obstruction (principal); Z20.828 Contact with and (suspected) exposure to other viral communicable diseases; K42.9 Umbilical hernia without obstruction or gangrene; F31.9 Bipolar disorder, unspecified; Z79.899 Other long term (current) drug therapy
CPT/HCPCS: 96365; 85025 ×2; 80048 ×2; 36415 ×2; 80076 ×2; 88304; 83690 ×2; 74177; 74300; 76705; 99285; 96366; 47563; U0003; Q9967; J2704; J2370; J2250; J3010; J2543 ×3; J1100; G0378 ×5; J7799 ×3; J7120 ×2; J7030; J2405

== ENCOUNTER 2022-08-25 10:50 | Emergency (ER) | payer BC ==
--- NOTE | 2022-08-25 11:43 | ER ---
Nurse's Notes [facility] Name: Jhon Ash Age: 47 yrs Sex: Male : 1975 Arrival Date: 08/25/2022 Time: 10:50 Bed IW1 Private MD: Diagnosis: Encounter for issue of repeat prescription Presentation: 08/25 11:04 Chief complaint: Patient states: Requesting medication refill as [facility]. Medications requested; oxcarbazepine, Benztropine, Duloxetine and Aripiprazole. Coronavirus screen: Client denies travel out of the [place] in the last 14 days. Ebola Screen: Patient denies exposure to infectious person. Patient denies travel to an Ebola-affected area in the 21 days before illness onset. Initial Sepsis Screen: Does the patient meet any 2 criteria? No. Patient's initial sepsis screen is negative. Does the patient have a suspected source of infection? No. Patient's initial sepsis screen is negative. Risk Assessment: Do you want to hurt yourself or someone else? Patient reports no desire to harm self or others. Onset of symptoms is unknown. 11:04 Method Of Arrival: Ambulatory ss 11:04 Acuity: MELVI 5 ss Historical: - Allergies: 11:07 No Known Allergies; ss - PMHx: 11:07 Bipolar disorder; Depression; ss - Immunization history:: Client reports receiving the 2nd dose of the Covid vaccine. - Social history:: Smoking status: Patient denies any tobacco usage or history of. Screenin:08 [facility] ED Fall Risk Assessment (Adult) History of falling in the last 3 months, ss including since admission No falls in past 3 months (0 pts). Abuse screen: Denies threats or abuse. Denies injuries from another. Nutritional screening: No deficits noted. Tuberculosis screening: Never had TB. Assessment: 11:08 General: Appears in no apparent distress. comfortable, Behavior is calm, cooperative. ss Neuro: Level of Consciousness is awake, alert, obeys commands. Respiratory: Airway is patent Respiratory effort is even, unlabored, Respiratory pattern is regular, symmetrical. Derm: Skin is pink, warm \T\ dry. normal. Vital Signs: 11:04 BP 116 / 82; Pulse 86; Resp 16; Temp 98(TE); Pulse Ox 97% on R/A; Weight 105.23 kg; ss Height 6 ft. 0 in. ; Pain 0/10; 11:04 Body Mass Index 31.46 (105.23 kg, 182.88 cm) ss 11:04 Pain Scale: Adult ss ED Course: 10:54 Patient arrived in ED. mr 10:58 Brandin Keller PA is PHCP. [facility] 10:58 Antoine Rob MD is Attending Physician. [facility] 11:07 Triage completed. ss 11:07 Arm band placed on left wrist. ss 11:08 Patient has correct armband on for positive identification. ss 11:08 No provider procedures requiring assistance completed. Patient did not have IV access ss during this emergency room visit. Administered Medications: No medications were administered Medication: 11:08 VIS not applicable for this client. ss Outcome: 11:43 Discharge ordered by . [facility] 11:48 Discharged to home ambulatory. ss 11:48 Condition: good 11:48 Discharge instructions given to patient, Instructed on discharge instructions, follow up and referral plans. medication usage, Demonstrated understanding of instructions, follow-up care, medications, Prescriptions given X 4. 11:48 Patient left the ED. ss Signatures: Brandin Keller PA PA jmm Rivera, Mary Amy Soto, RN RN ss
--- NOTE | 2022-08-25 11:43 | EDPHYS ---
Physician Documentation [facility] Name: Jhon Ash Age: 47 yrs Sex: Male : 1975 Arrival Date: 08/25/2022 Time: 10:50 Bed IW1 Private MD: ED Physician Antoine Rob HPI: 08/25 11:08 This 47 yrs old Black Male presents to ER via Ambulatory with complaints of Medication jmm Refill. 11:08 The patient presents to the emergency department requesting refill(s) for: psychiatric jmm medication. The patient chronically suffers from bipolar, depression. Historical: - Allergies: 11:07 No Known Allergies; ss - PMHx: 11:07 Bipolar disorder; Depression; ss - Immunization history:: Client reports receiving the 2nd dose of the Covid vaccine. - Social history:: Smoking status: Patient denies any tobacco usage or history of. ROS: 11:08 Constitutional: Negative for fever, chills, and weight loss, Cardiovascular: Negative jmm for chest pain, palpitations, and edema, Respiratory: Negative for shortness of breath, cough, wheezing, and pleuritic chest pain. 11:08 All other systems are negative. Exam: 11:08 Constitutional: This is a well developed, well nourished patient who is awake, alert, jmm and in no acute distress. Head/Face: atraumatic. Eyes: EOMI, no conjunctival erythema appreciated ENT: Moist Mucus Membranes Neck: Trachea midline, Supple Chest/axilla: Normal chest wall appearance and motion. Cardiovascular: Regular rate and rhythm. No edema appreciated Respiratory: Normal respirations, no respiratory distress appreciated Abdomen/GI: Non distended Back: Normal ROM Skin: General appearance color normal MS/ Extremity: Moves all extremities, no obvious deformities appreciated, no edema noted to the lower extremities Neuro: Awake and alert Psych: Behavior is normal, Mood is normal, Patient is cooperative and pleasant Vital Signs: 11:04 BP 116 / 82; Pulse 86; Resp 16; Temp 98(TE); Pulse Ox 97% on R/A; Weight 105.23 kg; ss Height 6 ft. 0 in. ; Pain 0/10; 11:04 Body Mass Index 31.46 (105.23 kg, 182.88 cm) 11:04 Pain Scale: Adult ss MDM: 11:08 Patient medically screened. jmm 11:08 Data reviewed: vital signs, nurses notes. Counseling: I had a detailed discussion with [facility] the patient and/or guardian regarding: the historical points, exam findings, and any diagnostic results supporting the discharge/admit diagnosis, the need for outpatient follow up, to return to the emergency department if symptoms worsen or persist or if there are any questions or concerns that arise at home. Administered Medications: No medications were administered Disposition Summary: 08/25/22 11:43 Discharge Ordered Location: Home [facility] Condition: Stable [facility] Diagnosis - Encounter for issue of repeat prescription [facility] Followup: [facility] - With: Private Physician - When: 2 - 3 days - Reason: Recheck today's complaints, Continuance of care, Re-evaluation by your physician Discharge Instructions: - Discharge Summary Sheet [facility] - Medicine Refill at the Emergency Department [facility] Forms: - Medication Reconciliation Form [facility] - Thank You Letter [facility] - Antibiotic Education [facility] - Prescription Opioid Use [facility] - [email or web address] [facility] Prescriptions: - aripiprazole 20 mg Oral tablet - take 1 tablet by ORAL route daily; 30 tablet; Refills: 0, Product Selection [facility] Permitted - benztropine 0.5 mg Oral tablet - take 1 tablet by ORAL route Every night; 30 tablet; Refills: 0, Product [facility] Selection Permitted - duloxetine 60 mg Oral Capsule, Delayed Release Sprinkle - take 1 capsule by ORAL route daily; 30 capsule; Refills: 0, Product Selection [facility] Permitted - oxcarbazepine 150 mg Oral tablet - take 2 tablet by ORAL route Every night; 60 tablet; Refills: 0, Product [facility] Selection Permitted Signatures: Brandin Keller PA PA [facility] Amy Soto, RN RN ss
[2022-08-25 11:54] VITALS: BP 116/82; TEMP 98; O2SAT 97
== END 2022-08-25 11:48 | disposition home or self-care (01) ==
LOC: ER 10:50
DX: Z76.0 Encounter for issue of repeat prescription (principal); F31.9 Bipolar disorder, unspecified
CPT/HCPCS: 99283